=== PATIENT | male | born 1945 | race Caucasian/White ===

== ENCOUNTER 2016-07-15 10:30 | Inpatient (IN) | payer MEDICARE, BC ==
[~2016-07-15] VITALS: Ht 177.8 cm; Wt 119.4 kg
[2016-07-15] VITALS (195 sets, daily range): BP systolic 120–157; BP diastolic 76–84; PULSE 57–88; TEMP 97.9–102.9; O2SAT 92–99
[~2016-07-15 10:30] MED LIST: DYAZIDE 25 MG-31 CAP PO; NORVASC 10MG10 MG PO; TOPROL XL 50MG50 MG PO
[2016-07-15] MEDS ORDERED: FLOMAX 0.40.4 MG/CAP PO (11:45)
[2016-07-15] MEDS ORDERED: NORVASC 10MG10 MG PO (11:46)
[2016-07-15] MEDS ORDERED: TOPROL XL 25MG25 MG PO (11:47)
[2016-07-15] MEDS ORDERED: ZOFRAN 4MG T4 MG/TAB PO (11:47)
[2016-07-15] MEDS ORDERED: NORCO 325 MG-51 TAB PO (11:48)
[2016-07-15] MEDS ORDERED: PREDNISONE20 MG PO (11:49)
[2016-07-15 14:27] LABS: BASO # 0.1 (0.0-0.2); BASO % 0.5 % (0.0-2.0); GRAN # 7.5 (1.4-6.5); HEMATOCRIT 43.7 % (42.0-52.0); HEMOGLOBIN 15.3 g/dl (13.5-18.0); LYMPH # 0.9 (1.2-3.4); LYMPH % 9.6 % (20.0-51.0); MEAN CELL VOLUME 89 fl (80.0-100.0); MEAN CORPUSCULAR HEMOGLOBIN 31 pg (27.0-31.0); MEAN CORPUSCULAR HGB CONC 35 g/dl (33.0-37.0); MEAN PLATELET VOLUME 9.7 fl (7.4-10.4); MONO % 10.6 % (1.7-9.3); PLATELET COUNT 125 K/mm3 (130-400); RED BLOOD COUNT 4.91 M/mm3 (4.20-5.60); REDCELL DISTRIBUTION WIDTH-CV 13.7 % (11.5-14.5); WHITE BLOOD COUNT 9.5 K/mm3 (4.8-10.8)
[2016-07-16] VITALS (696 sets, daily range): BP systolic 131–157; BP diastolic 72–86; PULSE 52–62; TEMP 97.1–98.2; O2SAT 73–100
[2016-07-16 11:27] LABS: ADD PATHOLOGY DIFF REVIEW NO; HEMATOCRIT 43.8 % (42.0-52.0); HEMOGLOBIN 15.3 g/dl (13.5-18.0); MEAN CELL VOLUME 89 fl (80.0-100.0); MEAN CORPUSCULAR HEMOGLOBIN 31 pg (27.0-31.0); MEAN CORPUSCULAR HGB CONC 35 g/dl (33.0-37.0); MEAN PLATELET VOLUME 9.6 fl (7.4-10.4); PLATELET COUNT 135 K/mm3 (130-400); RED BLOOD COUNT 4.94 M/mm3 (4.20-5.60); REDCELL DISTRIBUTION WIDTH-CV 13.8 % (11.5-14.5); WHITE BLOOD COUNT 8.9 K/mm3 (4.8-10.8)
[2016-07-16 11:44] LABS: ADJUSTED CALCIUM 9.3 mg/dL (8.4-10.2); ALBUMIN 3.3 gm/dL (3.5-5.0); BILIRUBIN,TOTAL 0.7 mg/dL (0.0-1.0); CALCIUM 8.7 mg/dL (8.4-10.2); CREATININE, serum 0.96 mg/dL (0.66-1.25); POTASSIUM 3.3 mmol/L (3.4-5.0); TOTAL PROTEIN 6.7 gm/dL (6.4-8.2)
[2016-07-16 12:03] LABS: BAND 37 % (0-10); NEUTROPHILS 51 % (42.0-75.2); PLATELET ESTIMATE DECREASED (NORMAL); TOTAL CELLS COUNTED 100
[2016-07-17 01:59] VITALS: BP 142/75; PULSE 51; TEMP 97.6
[2016-07-17 06:22] VITALS: BP 131/66; PULSE 54; TEMP 98.5
[2016-07-17 09:55] VITALS: BP 132/59; PULSE 64; TEMP 97.9
[2016-07-17 14:26] VITALS: BP 121/56; PULSE 75
[2016-07-17] MEDS ORDERED: CIPRO 500MG TA500 MG PO (15:10)
== END 2016-07-17 17:32 | disposition home or self-care (01) | DRG 694 ==
LOC: SDCO 10:30 → ICU 14:20 → SDCO 14:24 → ICU 14:25 → SURG 14:25 → IMCU 14:25 → SURG 07-16 19:48
PROVIDERS: Internal Medicine; Urology
PROC: 0T768DZ Dilation of Right Ureter with Intraluminal Device, Via Natural or Artificial Opening Endoscopic (ICD-10-PCS; principal; 2016-07-15 13:00)
PROC: BT14ZZZ Fluoroscopy of Kidneys, Ureters and Bladder (ICD-10-PCS; 2016-07-15 13:00)
DX: N20.1 Calculus of ureter (principal); N13.8 Other obstructive and reflux uropathy; N39.0 Urinary tract infection, site not specified; N41.1 Chronic prostatitis; I10 Essential (primary) hypertension; G47.33 Obstructive sleep apnea (adult) (pediatric); N40.1 Benign prostatic hyperplasia with lower urinary tract symptoms
CPT/HCPCS: 99223; 99232-AI; A9284; C1769; C2617; J0690; J1100; J1720; J1885; J1956; J2405; J2704; J3010; J7120; J7512; Q9967

== ENCOUNTER 2018-01-22 07:06 | Day surgery (SDC) | payer MEDICARE, BC ==
[2018-01-22] VITALS (10 sets, daily range): BP systolic 112–157; BP diastolic 59–79; PULSE 54–80; TEMP 97.6–98
[~2018-01-22] VITALS: Ht 177.8 cm; Wt 119.6 kg
[~2018-01-22 07:06] MED LIST changes: +CIPRO 500MG TA500 MG PO; +FLOMAX 0.40.4 MG/CAP PO; +LOPRESSOR 225 MG/TAB PO; +NORCO 325 MG-51 TAB PO; +PREDNISONE20 MG PO; -TOPROL XL 50MG50 MG PO; +ZOFRAN 4MG T4 MG/TAB PO
[2018-01-23 04:01] VITALS: BP 130/60; PULSE 67; TEMP 98
[2018-01-23 07:53] VITALS: BP 120/61; PULSE 63; TEMP 98.1
[2018-01-23 11:16] VITALS: BP 112/59; PULSE 65; TEMP 98.5
[2018-01-23 16:32] VITALS: BP 136/75; PULSE 64; TEMP 98.7
[2018-01-23 19:26] VITALS: BP 115/42; PULSE 69; TEMP 98.8
[2018-01-24 04:35] VITALS: BP 121/59; PULSE 60; TEMP 98
[2018-01-24 07:50] VITALS: BP 125/63; PULSE 60; TEMP 97.9
[2018-01-24 12:00] VITALS: BP 145/71; PULSE 66; TEMP 98.8
== END 2018-01-24 13:14 | disposition home or self-care (01) ==
LOC: SDCO 07:06 → SURG 11:15 → SDCO 01-24 13:14
DX: R33.8 Other retention of urine (principal); N40.1 Benign prostatic hyperplasia with lower urinary tract symptoms; N13.8 Other obstructive and reflux uropathy; R39.12 Poor urinary stream; R35.1 Nocturia; N41.1 Chronic prostatitis; E78.00 Pure hypercholesterolemia, unspecified; H49.40 Progressive external ophthalmoplegia, unspecified eye; Z85.828 Personal history of other malignant neoplasm of skin; Z79.899 Other long term (current) drug therapy; Z87.442 Personal history of urinary calculi; I45.10 Unspecified right bundle-branch block; G47.33 Obstructive sleep apnea (adult) (pediatric)
CPT/HCPCS: OP; J0690; J1100; J2250; J2704; J3010; J3480; J7120

== ENCOUNTER 2022-06-19 11:07 | Day surgery (SDC) | payer MEDICARE, BC ==
[~2022-06-19] VITALS: Ht 175.3 cm; Wt 110.4 kg
[2022-06-19 11:34] VITALS: BP 160/72; PULSE 63; TEMP 98.8
--- NOTE | 2022-06-19 12:31 | NUR ---
Pt. arrived to the floor. Pt. is A&OX3, assessment complete. INT started to rt. forearm, 20g. 2 attempts made. Pt. tolerated well. Pt. reports pain to lt. flank at an 8. Gave Morphine per orders. IV fluids started per orders. Pt. denies further needs.
[2022-06-19] MEDS ORDERED: NORCO 325 MG-51 TAB PO (12:34)
[2022-06-19] MEDS ORDERED: ZOFRAN 4MG T4 MG/TAB PO (12:35)
[2022-06-19] MEDS ORDERED: LIPITOR 40MG TA40 MG PO (12:38)
[2022-06-19] MEDS ORDERED: CELEBREX 1100 MG/CAP PO (12:39)
[2022-06-19] MEDS ORDERED: PEPCID AC 10MG10 MG PO (12:39)
[2022-06-19] MEDS ORDERED: PLAVIX 75MG TAB75 MG PO (12:40)
[2022-06-19 14:00] VITALS: BP_SYST 160
[2022-06-19 15:30] VITALS: BP 162/74; PULSE 62; TEMP 99
--- NOTE | 2022-06-19 16:56 | NUR ---
Pt. to or
--- NOTE | 2022-06-19 19:46 | NUR ---
Pt sitting up on bed w/ company @ bedside upon this nurse's entry to room. Pt is currently eating dinner. Pt denies any difficulty w/ eating, nasuea, or vomitting. A&Ox4. Pt inquires about procedure and if a stent was placed. This nurse read from 's operative report to inform pt of stent placement and stone extraction. Pt verbalizes understanding. Pt also denies any pain or difficulty w/ voiding. He is inquiring about discharge orders at this time. Shift assessment completed. Will follow up w/ discharge instructions.
[2022-06-19 19:51] VITALS: BP_SYST 114
[2022-06-19 20:16] VITALS: BP 171/73; PULSE 70; TEMP 98.1
[2022-06-19 20:23] VITALS: BP 145/60; PULSE 59; TEMP 97.6
--- NOTE | 2022-06-19 21:00 | NUR ---
Pt sitting in bed w/ friend remaining @ bedside prepared for discharge. Discharge instruction and education reviewed w/ pt. Pt verbalizes understanding. PIV discontinued from RFA w/ cath tip intact. Pressure drsg applied. Pt denies any pain, nausea, lightheadedness, or dizziness. Pt continues to have steady gait and no issues w/ urinary voiding @ this time. Pt is escorted to POV via w/c by SCOTT Resendiz.
== END 2022-06-19 21:00 | disposition home or self-care (01) ==
LOC: SDCO 11:07 → MEDICAL 11:07 → SDCO 16:30
DX: N20.1 Calculus of ureter (principal)
CPT/HCPCS: OP; C1769; C2617; J0690; J1100; J1885; J2270; J2405; J2704; J3010; J7030